=== PATIENT | female | born 1965 | race Caucasian/White ===

== ENCOUNTER 2021-01-29 17:40 | Emergency (ER) | payer MEDICARE ==
[~2021-01-29] VITALS: Ht 167.6 cm; Wt 74.3 kg
[~2021-01-29 17:40] MED LIST: ACET65TA OR; SYNT50TA OR
[2021-01-29 20:47] LABS: BASO # 0.2 10^3/uL (0.0-0.2); BASO % 1.5 % (0.0-1.0); EOS # 0.4 10^3/uL (0.0-0.5); EOS % 4.3 % (0.0-3.0); HEMATOCRIT 41.4 % (36.0-47.0); LYMPH # 3.8 10^3/uL (1.5-5.0); LYMPH % 36.7 % (24.0-44.0); MEAN CORPUSCULAR HEMOGLOBIN 33.5 pg (27.0-33.0); MEAN CORPUSCULAR HGB CONC 33.8 g/dl (32.0-36.5); MONO # 0.7 10^3/uL (0.0-0.8); MONO % 6.9 % (2.0-8.0); NEUTROPHILS % 48.4 % (36.0-66.0); PLATELET COUNT, AUTOMATED 292 10^3/uL (150-450); RED BLOOD COUNT 4.18 10^6/uL (4.00-5.40); WHITE BLOOD COUNT 10.3 10^3/uL (4.0-10.0)
[2021-01-29 21:34] LABS: ALBUMIN 4.1 GM/DL (3.2-5.2); BILIRUBIN,DIRECT 0.1 MG/DL (0.0-0.2); BILIRUBIN,TOTAL 0.5 MG/DL (0.2-1.0); CALCIUM LEVEL 10.1 MG/DL (8.5-10.1); CREATININE FOR GFR 1.19 MG/DL (0.55-1.30); GLOMERULAR FILTRATION RATE 50.3 (>51); POTASSIUM SERUM 4.5 MEQ/L (3.5-5.1); TOTAL PROTEIN 8.2 GM/DL (6.4-8.2)
--- NOTE | 2021-01-29 22:06 | REPVR ---
PROCEDURE INFORMATION: Exam: CT Abdomen And Pelvis Without Contrast Exam date and time: 01/29/2021 8:06 PM Age: 55 years old Clinical indication: Other: Hematuria, dysuria, flank pain, abd pain TECHNIQUE: Imaging protocol: Computed tomography of the abdomen and pelvis without contrast. Radiation optimization: All CT scans at this facility use at least one of these dose optimization techniques: automated exposure control; mA and/or kV adjustment per patient size (includes targeted exams where dose is matched to clinical indication); or iterative reconstruction. COMPARISON: No relevant prior studies available. FINDINGS: Liver: Unremarkable. No mass. Gallbladder and bile ducts: There has been prior cholecystectomy. No biliary duct dilation. Pancreas: Normal. No ductal dilation. Spleen: Normal. No splenomegaly. Adrenal glands: Normal. No mass. Kidneys and ureters: Nonobstructing calyceal stones in the right kidney. Kidneys are otherwise unremarkable. No ureteral calculi or hydronephrosis. Stomach and bowel: Unremarkable. No obstruction. No inflammatory changes or mucosal thickening. Appendix: No evidence of appendicitis. Intraperitoneal space: No free air. No significant fluid collection. Vasculature: Unremarkable. No abdominal aortic aneurysm. Lymph nodes: Unremarkable. No enlarged lymph nodes. Urinary bladder: Mild urinary bladder wall thickening with surrounding soft tissue edema. Reproductive: Unremarkable as visualized. Bones/joints: There are degenerative changes in the spine and pelvis. Soft tissues: Unremarkable. IMPRESSION: 1. Urinary bladder wall thickening suggesting cystitis. 2. Nonobstructing right renal calyceal stones. No hydronephrosis. Electronically signed by: Edward Mathis On 01/29/2021 22:05:50 PM
[2021-01-29 22:29] VITALS: BP 170/96
[2021-01-29] MEDS ORDERED: SULF1TAB23 PO ×2 (22:29→22:33)
[2021-01-29] MEDS ORDERED: PHEN-372 PO (22:30)
[2021-01-29] MEDS ORDERED: MORPHINE 4 MG/ML 1ML VIAL/SYRINGE (J2270) IV ONE (22:30)
[2021-01-29] MEDS ORDERED: PHENAZOPYRIDINE 100 MG TAB PO ONE (22:30)
[2021-01-29] MEDS ORDERED: ONDANSETRON 4MG/2ML VIAL IV ONE (22:30)
[2021-01-29] MEDS ORDERED: IBUPROFEN 800 MG TAB PO ONE (22:30)
== END 2021-01-29 22:48 | disposition home or self-care (01) ==
LOC: M ED 17:40
DX: N30.01 Acute cystitis with hematuria (principal); R10.84 Generalized abdominal pain; F17.200 Nicotine dependence, unspecified, uncomplicated; E03.9 Hypothyroidism, unspecified; Z88.0 Allergy status to penicillin; Z88.1 Allergy status to other antibiotic agents; Z79.899 Other long term (current) drug therapy

== ENCOUNTER 2021-10-30 08:06 | Emergency (ER) | payer MEDICARE, SELFPAY ==
[~2021-10-30] VITALS: Ht 167.6 cm; Wt 70.8 kg
[~2021-10-30 08:06] MED LIST changes: +PHEN-372 PO; +SULF1TAB23 PO
[2021-10-30 09:32] LABS: BASO # 0.2 10^3/uL (0.0-0.2); BASO % 1.8 % (0.0-1.0); EOS # 0.5 10^3/uL (0.0-0.5); EOS % 5.5 % (0.0-3.0); HEMATOCRIT 42.1 % (36.0-47.0); HEMOGLOBIN 14.1 g/dl (12.0-15.5); LYMPH # 2.9 10^3/uL (1.5-5.0); LYMPH % 33.8 % (24.0-44.0); MEAN CORPUSCULAR HEMOGLOBIN 33.1 pg (27.0-33.0); MEAN CORPUSCULAR HGB CONC 33.5 g/dl (32.0-36.5); MEAN CORPUSCULAR VOLUME 98.8 fl (80.0-96.0); MONO # 0.7 10^3/uL (0.0-0.8); MONO % 8.8 % (2.0-8.0); NEUTROPHILS # 4.2 10^3/uL (1.5-8.5); NEUTROPHILS % 49.4 % (36.0-66.0); PLATELET COUNT, AUTOMATED 236 10^3/uL (150-450); RED BLOOD COUNT 4.26 10^6/uL (4.00-5.40); WHITE BLOOD COUNT 8.4 10^3/uL (4.0-10.0)
[2021-10-30] MEDS ORDERED: ISOVUE-370 76% 100ML VIAL As Ordered ONE (09:34)
[2021-10-30 10:05] LABS: ACETAMINOPHEN LEVEL < 2.0 UG/ML (10.0-30.0); ALBUMIN 4.1 GM/DL (3.2-5.2); ALT/SGPT 46 U/L (12-78); BILIRUBIN,DIRECT 0.2 MG/DL (0.0-0.2); BILIRUBIN,TOTAL 0.9 MG/DL (0.2-1.0); ETHYL ALCOHOL (ETHANOL) < 0.003 % (0.000-0.010); SALICYLATE LEVEL 9.5 MG/DL (5.0-30.0)
[2021-10-30 10:24] LABS: AMPHETAMINES LEVEL URINE POSITIVE (NEGATIVE); BARBITURATES URINE NEGATIVE (NEGATIVE); BENZODIAZEPINES URINE NEGATIVE (NEGATIVE); CANNABINOIDS URINE POSITIVE (NEGATIVE); COCAINE METABOLITE URINE NEGATIVE (NEGATIVE); METHADONE URINE NEGATIVE (NEGATIVE); OPIATES URINE NEGATIVE (NEGATIVE); PHENCYCLIDINE URINE NEGATIVE (NEGATIVE)
[2021-10-30 12:35] LABS: RSV AMPLIFICATION NEGATIVE (NEGATIVE)
[2021-10-30 15:36] VITALS: BP 122/76
[2021-10-30] MEDS ORDERED: BACT800T5 PO (15:37)
[2021-10-30] MEDS ORDERED: CYCL5TAB PO (15:37)
[2021-10-30] MEDS ORDERED: NAPR-837 PO (15:37)
== END 2021-10-30 16:02 | disposition home or self-care (01) ==
LOC: M ED 08:06
DX: F15.20 Other stimulant dependence, uncomplicated (principal); F32.A Depression, unspecified; R26.9 Unspecified abnormalities of gait and mobility; S16.1XXA Strain of muscle, fascia and tendon at neck level, initial encounter; S50.819A Abrasion of unspecified forearm, initial encounter; X58.XXXA Exposure to other specified factors, initial encounter; Y92.9 Unspecified place or not applicable; Y93.9 Activity, unspecified; Y99.9 Unspecified external cause status; Z88.0 Allergy status to penicillin; Z88.8 Allergy status to other drugs, medicaments and biological substances; Z79.899 Other long term (current) drug therapy

== ENCOUNTER 2022-05-26 06:04 | Emergency (ER) | payer SELFPAY ==
[~2022-05-26 06:04] MED LIST changes: +BACT800T5 PO; +CYCL5TAB PO; +NAPR-837 PO
[2022-05-26] MEDS ORDERED: BACITRACIN OINTMENT 30GM TUBE TOP ONE (06:30)
[2022-05-26] MEDS ORDERED: LIDOCAINE W/EPINEPHRINE 1% 20ML VIAL SC ONE (06:30)
[2022-05-26] MEDS ORDERED: NS 1,000 ML IV ONE (06:30)
[2022-05-26 06:44] LABS: HEMATOCRIT 41.8 % (36.0-47.0); MEAN CORPUSCULAR HEMOGLOBIN 33.5 pg (27.0-33.0); MEAN CORPUSCULAR HGB CONC 33.5 g/dl (32.0-36.5); PLATELET COUNT, AUTOMATED 235 10^3/uL (150-450); RED BLOOD COUNT 4.18 10^6/uL (4.00-5.40)
[2022-05-26 06:47] LABS: CALCIUM LEVEL 9.1 MG/DL (8.5-10.1); CREATININE FOR GFR 1.27 MG/DL (0.55-1.30); ETHYL ALCOHOL (ETHANOL) 0.247 % (0.000-0.010); GLOMERULAR FILTRATION RATE 46.5 (>51); POTASSIUM SERUM 3.5 MEQ/L (3.5-5.1)
[2022-05-26] MEDS ORDERED: ceFAZolin SOD 1 GM in D5W MINI-BAG PLUS 50 ML IV ONE (08:30)
[2022-05-26 08:45] VITALS: BP 143/83
[2022-05-26] MEDS ORDERED: BOOSTRIX/ADACEL VACCINE (DIPHTH/PERTUSS/ACELL/TETANUS) 0.5ML SYR IM.IMMUN ONE (10:10)
[2022-05-26] MEDS ORDERED: CEPH500C PO (10:14)
== END 2022-05-26 10:58 | disposition home or self-care (01) ==
LOC: M ED 06:04
DX: S71.111A Laceration without foreign body, right thigh, initial encounter (principal); F10.120 Alcohol abuse with intoxication, uncomplicated; W01.0XXA Fall on same level from slipping, tripping and stumbling without subsequent striking against object, initial encounter; F17.200 Nicotine dependence, unspecified, uncomplicated; Y92.009 Unspecified place in unspecified non-institutional (private) residence as the place of occurrence of the external cause; Y93.9 Activity, unspecified; Y99.9 Unspecified external cause status; Z91.041 Radiographic dye allergy status; Z88.0 Allergy status to penicillin; Z88.1 Allergy status to other antibiotic agents; Z79.899 Other long term (current) drug therapy
CPT/HCPCS: 12004; 70450; 72125; 73552; 73590; 80048; 82077; 85027; 90471; 90715; 96361; 96365; 96366; 99284; J0690

== ENCOUNTER 2022-06-08 16:46 | Emergency (ER) | payer SELFPAY ==
[~2022-06-08] VITALS: Ht 167.6 cm; Wt 75.9 kg
[~2022-06-08 16:46] MED LIST changes: +CEPH500C PO
[2022-06-08 16:47] VITALS: BP 169/77
== END 2022-06-08 19:06 | disposition home or self-care (01) ==
LOC: M ED 16:46
DX: Z48.02 Encounter for removal of sutures (principal); Z88.0 Allergy status to penicillin; Z88.1 Allergy status to other antibiotic agents; Z91.041 Radiographic dye allergy status

== ENCOUNTER → 2023-05-21 | Outpatient (REF) | payer SELFPAY ==
[2023-05-21 18:21] LABS: BASO # 0.2 10^3/uL (0.0-0.2); BASO % 1.3 % (0.0-1.0); EOS # 0.4 10^3/uL (0.0-0.5); EOS % 3.1 % (0.0-3.0); LYMPH # 3.6 10^3/uL (1.5-5.0); MEAN CORPUSCULAR HEMOGLOBIN 30.7 pg (27.0-33.0); MEAN CORPUSCULAR HGB CONC 32.7 g/dl (32.0-36.5); MEAN CORPUSCULAR VOLUME 93.9 fl (80.0-96.0); MONO # 0.7 10^3/uL (0.0-0.8); MONO % 5.3 % (2.0-8.0); NEUTROPHILS # 8.4 10^3/uL (1.5-8.5); NEUTROPHILS % 62.6 % (36.0-66.0); PLATELET COUNT, AUTOMATED 314 10^3/uL (150-450); RED BLOOD COUNT 5.22 10^6/uL (4.00-5.40); WHITE BLOOD COUNT 13.4 10^3/uL (4.0-10.0)
[2023-05-21 18:30] LABS: ALKALINE PHOSPHATASE 104 U/L (46-116); ALT/SGPT 59 U/L (7.0-40); AST/SGOT 53 U/L (<34); BILIRUBIN,TOTAL 0.3 MG/DL (0.3-1.2); BLOOD UREA NITROGEN 8 MG/DL (9-23); CALCIUM LEVEL 9.6 MG/DL (8.5-10.1); CARBON DIOXIDE LEVEL 26 MMOL/L (20-31); CHLORIDE LEVEL 106 MMOL/L (98-107); CHOLESTEROL LEVEL 324 MG/DL (<200); CHOLESTEROL RISK RATIO 4.87 (<5); CREATININE FOR GFR 0.96 MG/DL (0.55-1.30); GLOMERULAR FILTRATION RATE > 60.0 (>51); GLUCOSE, FASTING 77 MG/DL (60-100); HDL CHOLESTEROL 66.4 MG/DL (>40); NON-HDL-C 257.6 MG/DL; POTASSIUM SERUM 3.7 MMOL/L (3.5-5.1); SODIUM LEVEL 141 MMOL/L (136-145); TOTAL 25(OH) VITAMIN D 17.7 NG/ML (20.0-100.0); TOTAL PROTEIN 7.7 G/DL (5.7-8.2); TRIGLYCERIDES LEVEL 410 MG/DL (<150)
[2023-05-21 18:48] LABS: HEMOGLOBIN A1c 4.9 % (4.0-6.0)
[2023-05-21 19:01] LABS: THYROID STIMULATING HORMONE > 150.000 uIU/ML (0.55-4.78)
== END ==
LOC: M LAB REF 16:53
PROVIDERS: ATTEND Nurse Practitioner Family
DX: R31.0 Gross hematuria (principal); E66.3 Overweight; E55.9 Vitamin D deficiency, unspecified; R53.83 Other fatigue; Z11.9 Encounter for screening for infectious and parasitic diseases, unspecified; E03.9 Hypothyroidism, unspecified; F10.90 Alcohol use, unspecified, uncomplicated